=== PATIENT | male | born 1990 | race Caucasian/White ===

== ENCOUNTER 2024-05-12 10:12 | Emergency (ER) | payer BC, SELFPAY ==
[2024-05-12 10:13] VITALS: BP 137/94
--- NOTE | 2024-05-12 10:33 | ED.GENMED ---
History of Present Illness
General
Chief Complaint: Crisis Evaluation
Source: patient and family
Time Seen by Provider: 05/12/24 10:20
History of Present Illness
History of Present Illness:
33yoM presenting with his cousin for psychiatric evaluation. Patient has a longstanding history of anxiety and depression. He is not on any medications and does not see a psychiatrist. He was drinking alcohol yesterday (a few beers). He had an
argument with his . He started to make statements after the argument stating that he was going to hurt himself. He went to work this morning but cousin picked him up to bring him to the ED for crsis evaluation. Patient denies any suicidal
thoughts currently. He drinks a few beers daily but denies any history of alcohol withdrawal. No prior history of inpatient treatment.
Past History
Past History
ED Past Medical History: None
ED Past Surgical History: None
Social History
Tobacco: Non-smoker
Phy Exam
General Physical Exam
General Presentation: well appearing and no apparent distress
General age: appears stated age
General Skin: warm and dry
General Habitus: normal
General Mental: alert
ENT Exam
ENT Exam: normocephalic
Pulmonary Exam
Pulmonary Exam: no respiratory distress
Neurological Exam
Neurological Exam: alert
[place] Coma Scale
Eye Opening: Spontaneous
Verbal Response: Oriented
Motor Response: Obeys Commands
GCS Total Score: 15
Skin Exam
Skin Exam: normal color and warm/dry
Psychiatric Exam
Psychiatric Exam: depressed and other (Denies SI. No signs of psychosis. )
Course
Orders/Labs/Results
Orders:
Orders
05/12/24 10:17
1:1 Observation - Suicide/ Violent Behavior As Directed
Crisis Consult Urgent
Reason for Consult: SI
Vital Signs
Initial and Last Documented VS:
Initial Vital Signs
Temp Pulse Resp BP Pulse Ox
98.1 F 93 18 137/94 95
05/12/24 10:13 05/12/24 10:13 05/12/24 10:13 05/12/24 10:13 05/12/24 10:13
Last Documented Vital Signs
Temp Pulse Resp BP Pulse Ox
98.1 F 93 18 137/94 95
05/12/24 10:13 05/12/24 10:13 05/12/24 10:13 05/12/24 10:13 05/12/24 10:13
MDM/Problems Addressed
Differential Diagnosis Includes:
33yoM here for psychiatric evaluation. He made some comments about wanting to hurt himself yesterday after an argument with his so family brought him in for eval. He currently denies any SI. No prior history of inpatient treatment. No medical
complaints. VSS.
Initial ED plan: Patient medically cleared. Crisis consult ordered and 1:1 observation initiated.
*Critical Care Note
Total Time (30-74mins, 75-104mins- exclusive of procedures): Not Applicable
Update Note
Update Note:
Patient evaluated by crisis. No active suicidal thoughts and no grounds for 302. Patient referred to [facility]. He was advised to return to the ED with any SI or worsening symptoms. He was discharged in stable condition with his family member.
ED Attending Note
-
Portions of this chart may have been created with voice recognition software.� Occasional wrong word or��sound alike� substitutions may have occurred due to the inherent limitations of voice recognition software.
Discharge Plan
Departure
Patient Disposition: Home (Routine Discharge)
Date of Disposition: 05/12/24
Time of Disposition: 11:02
Patient with high blood pressure during this ER visit?: No
Discharge Problem:
Encounter for psychiatric assessment
Instructions: Depression in adults - Discharge instructions
Prescriptions:
No Action
levofloxacin 750 mg tablet
750 mg PO DAILY 7 Days Qty: 7 0RF
metronidazole 500 mg tablet
500 mg PO TID Qty: 21 0RF
Activity Restrictions/Additional Instructions:
Please follow-up with the outpatient resources provided.
Return to the ER with any worsening symptoms or suicidal thoughts.
Interventions
Interventions:
*Risk Screen - Suicide Last Done: 05/12/24 10:13
*General Assessment Last Done: 05/12/24 10:13
*Neglect/Abuse Screening Last Done: 05/12/24 10:13
ED- Fall Risk Assessment Last Done: 05/12/24 10:45
*ED COVID-19 Vaccine History Last Done: 05/12/24 10:45
*Nursing Disposition Last Done: 05/12/24 11:15
ED-Psychological Assessment Last Done: 05/12/24 10:45
Discharge Date and Time
Discharge Date/Time: 05/12/24 11:20
Print Language: DUTCH
--- NOTE | 2024-05-12 11:15 | EDRN ---
Reviewed discharge instructions with patient. Verbalized understanding.
--- NOTE | 2024-05-12 11:17 | EDRN ---
Patient stated that he's here to get a list of resources from the Crisis department. [place] from Crisis at bedside. Denies any thoughts of suicide.
== END 2024-05-12 11:20 | disposition home or self-care (01) ==
LOC: EMR 10:12
PROVIDERS: EMERGENCY PHYSICIAN Emergency Medicine
DX: F41.9 Anxiety disorder, unspecified (principal); F32.A Depression, unspecified; R45.851 Suicidal ideations; Z02.79 Encounter for issue of other medical certificate
CPT/HCPCS: 99283